=== PATIENT | female | born 1980 | race Asian ===

== ENCOUNTER 2018-04-29 07:15 | Day surgery (SDC) | payer OTHER ==
[2018-04-29] MEDS ORDERED: MIDAZOLAM 1 MG/ML 2 ML INJ (08:08)
[2018-04-29] MEDS ORDERED: LIDOCAINE 2% (SDV) 5 ML INJ (08:09)
[2018-04-29] MEDS ORDERED: PROPOFOL 20 ML (08:09)
[2018-04-29] MEDS ORDERED: FENTAnyl 50 MCG/ML VIAL ×2 (08:09→09:16)
[2018-04-29] MEDS ORDERED: CEFAZOLIN 1 GM INJ (08:09)
[2018-04-29] MEDS ORDERED: METOCLOPRAMIDE 10 MG INJ (08:10)
[2018-04-29] MEDS ORDERED: ONDANSETRON 4 MG INJ (08:10)
[2018-04-29] MEDS ORDERED: DEXAMETHASONE 4 MG/ML 5 ML INJ (08:10)
[2018-04-29] MEDS ORDERED: FAMOTIDINE 20 MG INJ (08:11)
[2018-04-29] MEDS ORDERED: SCOPOLAMINE 1.5 MG PATCH (08:13)
[2018-04-29] MEDS ORDERED: BUPIVACAINE 0.25% (MPF) 30 ML INJ (08:36)
[2018-04-29] MEDS ORDERED: SODIUM CL BACTERIOSTATIC 30 ML INJ (08:36)
[2018-04-29] MEDS ORDERED: KETAMINE (50 MG/ML) 10 ML VIAL (09:18)
[2018-04-29] MEDS: POLYMYXIN/BACITRACIN 1L IRRIG (09:41)
[2018-04-29] MEDS: BUPIVACAINE 0.5%/EPI (SDV) 30 ML INJ (09:42)
[2018-04-29] MEDS: GENTAMICIN 80 MG INJ (09:42)
[2018-04-29] MEDS: BUPIVACAINE LIPOSOME/PF 266 MG/20 ML VIAL INFIL (09:44)
[2018-04-29] MEDS ORDERED: OXYCODONE/ACETAMINOPHEN (5/325) TAB PO ×2 (10:00)
[2018-04-29] MEDS ORDERED: FENTAnyl 50 MCG/ML VIAL IV ×2 (10:00)
[2018-04-29] MEDS ORDERED: PROCHLORPERAZINE 10 MG INJ IV (10:00)
[2018-04-29] MEDS: MEPERIDINE 25 MG INJ IV (10:54)
[2018-04-29] MEDS: FENTAnyl 50 MCG/ML VIAL IV ×2 (10:54→11:05)
[2018-04-29] MEDS: ONDANSETRON 4 MG INJ IV (10:54)
[2018-04-29] MEDS ORDERED: morphine 2 MG INJ IV (11:30)
[2018-04-29] MEDS ORDERED: ONDANSETRON 4 MG INJ IV (11:30)
[2018-04-29] MEDS ORDERED: HYDROCODONE/APAP (5/325) TAB PO (11:30)
== END 2018-04-29 13:40 | disposition home or self-care (01) ==
LOC: SDS 07:15
DX: F64.8 Other gender identity disorders (principal)
CPT/HCPCS: 19340; 90686